=== PATIENT | male | born 1985 | race Caucasian/White ===

== ENCOUNTER 2021-06-10 17:26 | Emergency (ER) | payer OTHER ==
[~2021-06-10] VITALS: Ht 182.9 cm; Wt 113.4 kg
[2021-06-10 18:23] VITALS: BP 113/79
[2021-06-10] MEDS ORDERED: TESSALON PERLE100 MG PO (19:09)
[2021-06-10] MEDS ORDERED: IBU600 MG PO (19:09)
== END 2021-06-10 19:30 | disposition home or self-care (01) ==
LOC: ER 17:26
DX: U07.1 COVID-19 (principal); J12.82 Pneumonia due to coronavirus disease 2019